=== PATIENT | female | born 1980 | race Two or more races ===

== ENCOUNTER 2020-04-26 11:35 | Emergency (ER) | payer OTHER ==
[~2020-04-26] VITALS: Ht 170.2 cm; Wt 108.9 kg
[2020-04-26 12:08] LABS: Basophils # (auto) 0.1 10 ^3/uL (0-0.2); Basophils % (auto) 0.9 % (0.0-2.0); Eosinophils # (auto) 0.2 10 ^3/uL (0-0.8); Eosinophils % (auto) 1.6 % (0.0-7.0); Hematocrit 40.4 % (36.0-46.0); Hemoglobin 13.9 g/dL (12.2-16.2); Lymphocytes # (auto) 2.8 10 ^3/uL (0.4-5.4); Lymphocytes % (auto) 28.5 % (10.0-50.0); Mean Corpuscular Hemoglobin 27.9 pg (28.0-32.0); Mean Corpuscular Hgb Conc. 34.4 g/dL (32.0-36.0); Mean Corpuscular Volume 80.9 fL (80.0-100.0); Monocytes # (auto) 0.4 10 ^3/uL (0-1.3); Monocytes % (auto) 3.9 % (0.0-12.0); Neutrophils # (auto) 6.4 10 ^3/uL (1.6-8.6); Neutrophils % (auto) 65.1 % (37.0-80.0); Nucleated Red Blood Cells % 0.1 %; Platelet Count (auto) 377 10^3/uL (140-450); Red Cell Distribution Width 14.7 % (11.8-14.3); White Blood Cell 9.9 10^3/uL (4.4-10.8)
[2020-04-26] MEDS ORDERED: ASPirin 81 mg TAB PO ONE (12:15)
[2020-04-26 12:25] LABS: Albumin 3.6 g/dL (3.4-5.0); Anion Gap 3 (5-15); Blood Urea Nitrogen 11 mg/dL (7-18); Calcium 8.7 mg/dL (8.5-10.1); Carbon Dioxide 27 mmol/L (21-32); Chloride 106 mmol/L (98-107); Glucose 110 mg/dL (74-106); Potassium 3.8 mmol/L (3.5-5.1); Sodium 136 mmol/L (136-145)
[2020-04-26 12:29] LABS: Partial Thromboplastin Time 25.9 sec (23.0-31.2)
[2020-04-26 12:30] LABS: Alanine Aminotransferase 36 U/L (13-56); Alkaline Phosphatase 86 U/L (45-117); Aspartate Aminotransferase 19 U/L (15-37); BUN/Creatinine Ratio 13.8; Bilirubin, Total 0.3 mg/dL (0.2-1.0); GFR African American 103 mL/min; GFR Non-African American 85 mL/min
[2020-04-26 12:50] LABS: Beta HCG, Quantitative < 1 mlU/mL (1-3); Thyroid Stimulating Hormone 1.41 uIU/mL (0.358-3.74)
[2020-04-26 21:22] VITALS: BP 156/73
== END 2020-04-26 23:11 | disposition home or self-care (01) ==
LOC: ER 11:35
DX: R07.89 Other chest pain (principal); R00.2 Palpitations; Z90.49 Acquired absence of other specified parts of digestive tract
CPT/HCPCS: 36415; 71045; 80053; 83735; 84443; 84484; 84702; 85025; 85379; 85610; 85652; 85730; 93005

== ENCOUNTER 2021-07-10 18:18 | Emergency (ER) | payer OTHER ==
[~2021-07-10] VITALS: Ht 170.2 cm; Wt 104.3 kg
[2021-07-10 23:22] VITALS: BP 136/53
[2021-07-10] MEDS ORDERED: CYCLOBENZAPRINE HCL 10 MG TAB PO ONE (23:45)
== END 2021-07-11 00:12 | disposition home or self-care (01) ==
LOC: ER 18:26
DX: S33.5XXA Sprain of ligaments of lumbar spine, initial encounter (principal); M54.16 Radiculopathy, lumbar region; Z90.49 Acquired absence of other specified parts of digestive tract; V43.52XA Car driver injured in collision with other type car in traffic accident, initial encounter; Y93.89 Activity, other specified; Y92.410 Unspecified street and highway as the place of occurrence of the external cause; Y99.8 Other external cause status
CPT/HCPCS: 72100